=== PATIENT | male | born 1945 | race Native Hawaiian/Other Pacific Islander ===

== ENCOUNTER 2018-11-29 17:50 | Emergency (ER) | payer OTHER ==
[~2018-11-29] VITALS: Ht 182.9 cm; Wt 83.9 kg
[2018-11-29 18:20] LABS: PLATELET COUNT 266 K/uL (142-355)
[2018-11-29 19:15] VITALS: BP 160/75; TEMP 98.3
[2018-11-29] MEDS ORDERED: CLOPIDOGREL75 MG PEG (23:44)
[2018-11-29] MEDS ORDERED: FURO20TA67 PEG (23:45)
[2018-11-29] MEDS ORDERED: HYDRALAZINE50 MG PEG (23:47)
[2018-11-29] MEDS ORDERED: LEVE5MLUD PEG (23:51)
[2018-11-29] MEDS ORDERED: LORA0.5T17 PEG (23:52)
[2018-11-29] MEDS ORDERED: QUETIAPINE50 MG PEG (23:53)
[2018-11-29] MEDS ORDERED: THIA100T8 PEG (23:55)
== END 2018-11-29 19:20 | disposition other institution (70) ==
LOC: ED 18:04
PROVIDERS: Family Medicine
DX: R46.89 Other symptoms and signs involving appearance and behavior (principal); F28 Other psychotic disorder not due to a substance or known physiological condition
CPT/HCPCS: 36415; 80053; 85027; 93005; 99285

== ENCOUNTER 2018-12-04 01:15 | Inpatient (IN) | payer OTHER ==
[2018-12-04] VITALS (23 sets, daily range): BP systolic 97–129; BP diastolic 50–72; TEMP 97.4–99.8; Ht 175.3 cm; Wt 76.7 kg
[~2018-12-04] VITALS: Ht 175.3 cm; Wt 76.7 kg
[~2018-12-04 01:15] MED LIST: CLOPIDOGREL75 MG PEG; FURO20TA67 PEG; HYDRALAZINE50 MG PEG; LEVE5MLUD PEG; LORA0.5T17 PEG; QUETIAPINE50 MG PEG; THIA100T8 PEG
[2018-12-05] VITALS (23 sets, daily range): BP systolic 120–151; BP diastolic 60–97; TEMP 98.1–99
[2018-12-05 04:58] LABS: PLATELET COUNT 263 K/uL (142-355)
[2018-12-05 05:13] LABS: POTASSIUM 3.8 mmol/L (3.6-5.2)
[2018-12-06] VITALS (24 sets, daily range): BP systolic 114–152; BP diastolic 56–84; TEMP 98.1–99.8
[2018-12-06 06:21] LABS: PLATELET COUNT 325 K/uL (142-355)
[2018-12-06 08:05] LABS: POTASSIUM 3.4 mmol/L (3.6-5.2)
[2018-12-07] VITALS (24 sets, daily range): BP systolic 94–130; BP diastolic 50–73; TEMP 98–99.8
[2018-12-07 05:21] LABS: PLATELET COUNT 273 K/uL (142-355)
[2018-12-07 06:08] LABS: POTASSIUM 3.7 mmol/L (3.6-5.2)
[2018-12-08] VITALS (25 sets, daily range): BP systolic 106–151; BP diastolic 53–93; TEMP 97.8–98.6
[2018-12-08 06:45] LABS: POTASSIUM 4.1 mmol/L (3.6-5.2)
[2018-12-08 06:59] LABS: PLATELET COUNT 266 K/uL (142-355)
[2018-12-09] VITALS (20 sets, daily range): BP systolic 95–132; BP diastolic 49–83; TEMP 98.4–98.8
[2018-12-09 06:14] LABS: POTASSIUM 4.1 mmol/L (3.6-5.2)
[2018-12-09 06:32] LABS: PLATELET COUNT 316 K/uL (142-355)
[2018-12-10] VITALS (14 sets, daily range): BP systolic 106–117; BP diastolic 48–65; TEMP 97.7–99.4
[2018-12-10 09:39] LABS: PLATELET COUNT 316 K/uL (142-355)
[2018-12-10 09:53] LABS: POTASSIUM 4.1 mmol/L (3.6-5.2)
[2018-12-10] MEDS ORDERED: LEVE500T5 PO (13:54)
[2018-12-10] MEDS ORDERED: LEXAPRO10 MG PEG (13:55)
[2018-12-10] MEDS ORDERED: PRAZ1CAP16 PO (13:55)
[2018-12-10] MEDS ORDERED: NAMENDA5 MG PEG (13:56)
[2018-12-10] MEDS ORDERED: DONE5TAB PO (13:56)
[2018-12-10] MEDS ORDERED: RISP0.25 PEG (13:57)
[2018-12-10] MEDS ORDERED: FURO40TA93 PEG (13:58)
[2018-12-10] MEDS ORDERED: ASPIR-8181 MG PEG (13:58)
[2018-12-10] MEDS ORDERED: EFFER-K20 MEQ PEG (13:59)
[2018-12-10] MEDS ORDERED: LISI20TA11 PEG (14:00)
== END 2018-12-10 13:26 | disposition other institution (70) | DRG 70 ==
LOC: ICU 01:15
PROVIDERS: Family Medicine; ADMIT Emergency Medicine
DX: G93.41 Metabolic encephalopathy (principal); I50.31 Acute diastolic (congestive) heart failure; G40.89 Other seizures; D72.828 Other elevated white blood cell count; F91.8 Other conduct disorders; F03.90 Unspecified dementia, unspecified severity, without behavioral disturbance, psychotic disturbance, mood disturbance, and anxiety; F43.10 Post-traumatic stress disorder, unspecified; F41.8 Other specified anxiety disorders; I10 Essential (primary) hypertension; E78.49 Other hyperlipidemia; I25.2 Old myocardial infarction; D64.9 Anemia, unspecified; E87.6 Hypokalemia
CPT/HCPCS: 36415; 80053; 81000; 82607; 82728; 82747; 83540; 83735; 83880; 85027; 93306; 94760; J1940; J2270; J3475

== ENCOUNTER 2018-12-23 13:47 | Outpatient (CLI) | payer OTHER ==
[~2018-12-23 13:47] MED LIST changes: +ASPIR-8181 MG PEG; +DONE5TAB PO; +EFFER-K20 MEQ PEG; +FURO40TA93 PEG; +LEVE500T5 PO; +LEXAPRO10 MG PEG; +LISI20TA11 PEG; +NAMENDA5 MG PEG; +PRAZ1CAP16 PO; +RISP0.25 PEG
== END 2018-12-23 15:54 | disposition short-term general hospital (02) ==
LOC: AMB 13:47
DX: I69.818 Other symptoms and signs involving cognitive functions following other cerebrovascular disease (principal); F01.51 Vascular dementia, unspecified severity, with behavioral disturbance; G40.802 Other epilepsy, not intractable, without status epilepticus; E87.0 Hyperosmolality and hypernatremia; F33.3 Major depressive disorder, recurrent, severe with psychotic symptoms; F43.10 Post-traumatic stress disorder, unspecified; I25.10 Atherosclerotic heart disease of native coronary artery without angina pectoris; R13.12 Dysphagia, oropharyngeal phase; I50.9 Heart failure, unspecified; I25.2 Old myocardial infarction; E83.42 Hypomagnesemia; K59.09 Other constipation
CPT/HCPCS: A0425; A0427

== ENCOUNTER 2020-08-09 22:34 | Emergency (ER) | payer OTHER ==
[~2020-08-09] VITALS: Ht 165.1 cm; Wt 88.5 kg
[2020-08-09 23:05] LABS: PLATELET COUNT 138 K/uL (142-355)
[2020-08-09 23:10] LABS: POTASSIUM 4.5 mmol/L (3.6-5.2)
[2020-08-10 00:08] VITALS: BP 162/72; TEMP 97.9
[2020-08-10] MEDS ORDERED: CETI10TA PO (01:12)
[2020-08-10] MEDS ORDERED: VITAMIN D-11000 UNIT PO (01:14)
[2020-08-10] MEDS ORDERED: ZINC SULFATE PO (01:17)
[2020-08-10] MEDS ORDERED: FEROSUL325 MG PO (01:19)
[2020-08-10] MEDS ORDERED: CENTANY EX (01:21)
[2020-08-10] MEDS ORDERED: [UNRECOGNIZED DRUG - OTHER] PO (01:23)
[2020-08-10] MEDS ORDERED: DIVA125C PO (01:25)
[2020-08-10] MEDS ORDERED: DOK100 MG PO (01:32)
[2020-08-10] MEDS ORDERED: LIPITOR80 MG PO (01:34)
[2020-08-10] MEDS ORDERED: DIVA250T2 PO (01:35)
[2020-08-10] MEDS ORDERED: CLON0.5T36 PO ×2 (01:36→01:37)
[2020-08-10] MEDS ORDERED: LORA2INJ21 IM (01:39)
[2020-08-10] MEDS ORDERED: POTASSIUM CHLO20 ME1 PO (02:02)
== END 2020-08-10 00:08 | disposition other institution (70) ==
LOC: ED 22:34
PROVIDERS: Family Medicine
DX: R46.89 Other symptoms and signs involving appearance and behavior (principal); R45.1 Restlessness and agitation; Z11.59 Encounter for screening for other viral diseases; Z04.6 Encounter for general psychiatric examination, requested by authority
CPT/HCPCS: 80053; 85027; 87635; 93005; 99285; U0003